=== PATIENT | female | born 1995 | race African-American/Black ===

== ENCOUNTER 2018-04-05 18:30 | Emergency (ER) | payer OTHER, SELFPAY | END 2018-04-05 19:23 | disposition home or self-care (01) | LOC: ERS 18:30 | DX: J06.9 Acute upper respiratory infection, unspecified (principal); F32.9 Major depressive disorder, single episode, unspecified; Z79.899 Other long term (current) drug therapy | CPT/HCPCS: 99283 ==

== ENCOUNTER 2018-09-27 22:47 | Emergency (ER) | payer SELFPAY ==
--- NOTE | 2018-09-27 23:22 | RAD ---
EXAM: Two views chest PROVIDED CLINICAL HISTORY: Fever COMPARISON: None FINDINGS: Cardiac and mediastinal silhouette appears within normal limits. Lungs appear free of significant opa city. No pleural fluid or pneumothorax apparent. IMPRESSION: No evidence for an acute cardiopulmonary process.
[2018-09-27] MEDS ORDERED: Acetaminophen 500 MG TAB ONE (23:26)
[2018-09-27] MEDS ORDERED: Dexamethasone 10 MG/ML VIAL ONE (23:27)
== END 2018-09-28 00:16 | disposition home or self-care (01) ==
LOC: ERS 22:47
DX: J10.1 Influenza due to other identified influenza virus with other respiratory manifestations (principal); F32.9 Major depressive disorder, single episode, unspecified; F41.9 Anxiety disorder, unspecified
CPT/HCPCS: 71046; 87804; J1100

== ENCOUNTER 2018-12-26 17:50 | Emergency (ER) | payer SELFPAY | END 2018-12-26 18:36 | disposition left against medical advice (07) | LOC: ERS 17:50 | DX: Z53.21 Procedure and treatment not carried out due to patient leaving prior to being seen by health care provider (principal) ==